=== PATIENT | male | born 1990 | race Two or more races ===

== ENCOUNTER 2017-06-10 15:40 | Emergency (ER) | payer OTHER ==
[~2017-06-10] VITALS: Ht 177.8 cm; Wt 95.3 kg
[2017-06-10 15:53] VITALS: BP 137/82
== END 2017-06-10 17:07 | disposition home or self-care (01) ==
LOC: EDBD 15:40 → ER 15:49
DX: S40.012A Contusion of left shoulder, initial encounter (principal); S30.1XXA Contusion of abdominal wall, initial encounter; V43.52XA Car driver injured in collision with other type car in traffic accident, initial encounter; Y93.89 Activity, other specified; Y92.89 Other specified places as the place of occurrence of the external cause; Y99.8 Other external cause status